=== PATIENT | male | born 1990 | race Caucasian/White ===

== ENCOUNTER 2020-06-02 14:26 | Emergency (ER) | payer OTHER ==
[2020-06-02 14:32] VITALS: BP 134/88
[2020-06-02] MEDS ORDERED: TETANUS/DIPHTHERIA/PERTUSSIS 0.5 ML SYRINGE IM ONE (14:35)
[2020-06-02] MEDS ORDERED: BUFFERED LIDOCAINE 10 ML SYRINGE IU ONE (14:35)
--- NOTE | 2020-06-02 14:50 | ED Physician Documentation ---
PD HPI SKIN - Stated complaint Stated Complaint: RIGHT FINGER LAC - Chief complaint Chief Complaint: Laceration - History obtained from History obtained from: Patient - Additional information Additional information: Patient comes emergency department with chief complaint of fingertip laceration while attempting to open a package with a Robert tool. States he was using the knife portion and that the knife slipped and lacerated the tip of his left index finger. Patient states that he came in because it just kept bleeding. No other injuries or complaints. Review of Systems Ten Systems: 10 systems reviewed and negative Constitutional: reports: Reviewed and negative Eyes: reports: Reviewed and negative Ears: reports: Reviewed and negative Nose: reports: Reviewed and negative Throat: reports: Reviewed and negative Cardiac: reports: Reviewed and negative Respiratory: reports: Reviewed and negative GI: reports: Reviewed and negative : reports: Reviewed and negative Skin: reports: Laceration (s) Musculoskeletal: reports: Reviewed and negative Neurologic: reports: Reviewed and negative Psychiatric: reports: Reviewed and negative Endocrine: reports: Reviewed and negative Immunocompromised: reports: Reviewed and negative PD PAST MEDICAL HISTORY - Allergies Allergies/Adverse Reactions: Allergies Allergy/AdvReac Type Severity Reaction Status Date / Time No Known Drug Allergies Allergy Verified 06/02/20 14:29 PD ED PE NORMAL - Vitals Vital signs reviewed: Yes - General General: Alert and oriented X 3, No acute distress, Well developed/nourished - HEENT HEENT: Atraumatic, PERRL, EOMI, Moist mucous membranes - Neck Neck: Supple, no meningeal sign - Respiratory Respiratory: No respiratory distress - Derm Derm: Normal color, Warm and dry, No rash, Other (7 mm linear laceration over distal-most L index fingertip. Extends to adipose tissue, approx. 3 mm deep. Nail/bed not involved. Bleeding controlled. No FB.) - Extremities Extremities: No deformity, Other (Full ROM L index finger.) - Neuro Neuro: Alert and oriented X 3 - Psych Psych: Normal mood, Normal affect Results - Vitals Vitals: Vital Signs - 24 hr 06/02/20 14:30 Temperature 36.6 C Heart Rate 85 Respiratory 16 Rate Blood Pressure 134/88 H O2 Saturation 100 Procedures - Laceration (location) L index finger Length in cm: 0.7 Wound type: Linear, Into subcut fat. No: Contaminated, Exposure of bone Neurovascular status: Sensory intact, Motor intact, Vascular intact Tendon involvement: No: Tendon Injury Wound preparation: Hibiclens (Irrigated with NS), Wound explored, To the base. No: FB identified Skin layer closure: Dermabond, Steri strips Other: Patient tolerated well, No complications, Neurovascular intact, Dressing applied, Tetanus booster given PD MEDICAL DECISION MAKING - ED course Complexity details: considered differential, d/w patient ED course: I discussed with the patient that his laceration could be repaired with a couple of sutures or with Dermabond and Steri stripping. Patient opted for the latter. This was done and we have discussed principles of wound management at home. We have also discussed the usual indications for return. Tetanus was updated in the emergency department. Departure - Departure Disposition: Home, Self Care Clinical Impression: Laceration Condition: Stable Instructions: ED Laceration Ext Skin Glue Comments: Please keep your wound clean and dry until the wound has formed a nice scab. You may leave the Steri-Strips in place as long as you would like, though most likely, the wound will be ready to have them off after the next several days. Your tetanus shot has been updated today. If your wound develops drainage of a thick, creamy appearing material, or if you develop redness and swelling spreading up the finger from the wound, please have the wound rechecked right away. Discharge Date/Time: 06/02/20 15:16
== END 2020-06-02 15:16 | disposition home or self-care (01) ==
LOC: ED 14:26
DX: S61.211A Laceration without foreign body of left index finger without damage to nail, initial encounter (principal); W26.0XXA Contact with knife, initial encounter
CPT/HCPCS: 12001; 90471; 99282; 99283